=== PATIENT | female | born 1950 | race Caucasian/White ===

== ENCOUNTER → 2021-02-22 08:03 | Outpatient (CLI) | payer MEDICARE, OTHER, SELFPAY ==
--- NOTE | 2021-02-22 10:06 | PFTCOMP ---
COMPLETE PULMONARY FUNCTION TEST INTERPRETATION Brief HPI: Patient is a 71 year old female, currently under the care of Dr. Larose, who presents to [facility] for complete pulmonary function tests secondary to diagnosis of COPD. Respiratory therapist reports good effort and reproducible results. Interpretation: Forced expiration spirometry shows a mild large airways obstructive ventilatory defect with an FEV1 of 103% predicted. There is no significant bronchodilator response by strict ATS criteria. Spirograms are of good quality and plateau slowly, indicating slowly emptying areas of the lungs. The respiratory flow volume loop shows decreased expiratory flow rates at all lung volumes consistent with airway obstruction. Lung volumes by body plethysmography show an elevated total lung capacity at 4.91 L, 129% predicted. FRC and RV are elevated out of proportion. Lung volume measurements are consistent with hyperinflation and air-trapping. Diffusion capacity by carbon monoxide is decreased at 41% predicted. The airway resistance is normal. Compared to previous pulmonary function tests from 07/14/2016, there is been significant worsening in air trapping with hyperinflation. Impression: Irreversible mild large airways obstructive ventilatory defect, resulting in air trapping with hyperinflation, and a disproportionate reduction in diffusion capacity. There have been changes compared to previous study.
== END ==
PROVIDERS: PCP Student in an Organized Health Care Education/Training Program; Referring Provider Internal Medicine Critical Care Medicine; Visit Provider Internal Medicine Critical Care Medicine
DX: J44.9 Chronic obstructive pulmonary disease, unspecified (principal)
CPT/HCPCS: 94060; 94726; 94729

== ENCOUNTER → 2021-02-23 12:46 | Outpatient (CLI) | payer MEDICARE, OTHER, SELFPAY ==
[2021-02-23 13:12] VITALS: PULSE 100; PULSE 101; PULSE 103; PULSE 81; PULSE 85; PULSE 97; O2SAT 90; O2SAT 91; O2SAT 92; O2SAT 93; O2SAT 95; O2SAT 96
--- NOTE | 2021-02-23 13:14 | CPS ---
Patient took one brief break during testing about half way through the 3rd minute for less than 10 seconds. Patient stated that the reason for the break was due to hip pain. Patient was audibly wheezy at this time but was able to speak in full sentences. Patient complained mostly of hip pain at the end of testing and moderate shortness of breath.
--- NOTE | 2021-02-23 14:49 | PCM.PSN.6M ---
PSN 6 Minute Walk Test 6 Minute Walk Test 6 Minute Walk Test: 6 Minute Walk Test PSN:6-Minute Walk Test Start: 02/23/21 13:12 Freq: Status: Active Protocol: [id number] Document 02/23/21 13:12 TYSON (Rec: 02/23/21 13:17 [email or web address] [id number]) 6 Minute Walk Test Date Performed 02/23/21 Time Performed 13:00 Height 4 ft 9 in Weight: 89.358 kg Weight in Pounds 197.[address]: Vernon Larose Assistive device used: None Pre-test Oxygen Delivery Method Room Air Pulse Ox (%) 95 Pulse Rate (60-100 beats/min) 81 Dyspnea Werner Scale (0-10) 0 Exertion Werner Scale (6-20) 6 1st minute Oxygen Delivery Method Room Air Pulse Ox (%) 92 Pulse Rate (60-100 beats/min) 97 2nd minute Oxygen Delivery Method Room Air Pulse Ox (%) 91 Pulse Rate (60-100 beats/min) 100 3rd minute Oxygen Delivery Method Room Air Pulse Ox (%) 90 Pulse Rate (60-100 beats/min) 100 Number of Rests Taken 1 4th minute Oxygen Delivery Method Room Air Pulse Ox (%) 93 Pulse Rate (60-100 beats/min) 100 5th minute Oxygen Delivery Method Room Air Pulse Ox (%) 90 Pulse Rate (60-100 beats/min) 103 H 6th minute Oxygen Delivery Method Room Air Pulse Ox (%) 90 Pulse Rate (60-100 beats/min) 101 H Dyspnea Werner Scale (0-10) 3 Exertion Werner Scale (6-20) 14 Post-test Oxygen Delivery Method Room Air Pulse Ox (%) 96 Pulse Rate (60-100 beats/min) 85 Full Laps Walked 12 Partial Lap, Number of Tiles Walked 20 Total Distance Walked (ft) 728 02/23/21 13:14 Cardiopulmonary Services by Beryl Kimball Patient took one brief break during testing about half way through the 3rd minute for less than 10 seconds. Patient stated that the reason for the break was due to hip pain. Patient was audibly wheezy at this time but was able to speak in full sentences. Patient complained mostly of hip pain at the end of testing and moderate shortness of breath. Initialized on 02/23/21 13:14 - END OF NOTE Interpretation Interpretation: The patient was able to ambulate 728 feet over the course of 6 minutes on room air with no assistive devices and one break secondary to hip pain. Patient did experience significant desaturation from a baseline of 95% to as low as 90% with some reflexive tachycardia as high as 103 bpm. These findings are consistent with a respiratory limitation exercise tolerance. Recommendations Recommendations: The patient does not qualify for supplemental oxygen at this time, but should be followed closely given level of desaturation.
== END ==
PROVIDERS: PCP Student in an Organized Health Care Education/Training Program; Referring Provider Internal Medicine Critical Care Medicine; Visit Provider Internal Medicine Critical Care Medicine
DX: J96.11 Chronic respiratory failure with hypoxia (principal)
CPT/HCPCS: 94618

== ENCOUNTER → 2021-02-24 06:42 | Outpatient (CLI) | payer MEDICARE, SELFPAY ==
--- NOTE | 2021-02-24 07:11 | CT_ITS ---
STUDY: LOW DOSE CT LUNG CANCER SCREENING REASON FOR EXAM: Female, 71 years old. h/o Tobacco Dependency, 40 year smoker RADIATION DOSAGE (If Supplied By Facility): CTDIvol = ( 3.02 ) mGy, DLP = ( 101.56 ) mGycm TECHNIQUE: No contrast was administered. Low dose technique was utilized (average mAS-38 and kVp 120). 1.25 mm axial source images with a slice interval of 1.25-mm were reconstructed in lung windows. 2.5 mm axial source images with a slice interval of 2.5-mm were reconstructed in lung windows. 5.0 mm axial source images with a slice interval of 5.0-mm were reconstructed in soft tissue windows. Nodule measured using lung windows on PACS and/or independent workstation with automated measurement of minimum and maximum diameter. Nodule measurement reported as average diameter rounded to the nearest whole number. Growth is defined as an increase ins size of greater than 1.5 mm. COMPARISON: None. Findings: The lungs are fully evaluable. Evaluation of other structures is extremely limited due to combination of technique and patient''s severely large body habitus. Lungs are severely emphysematous without focal high risk findings. Airways are patent. Coronary arteries are severely diseased. There is possible aortic valve stenosis. CT/Low Dose CT Lung Screening IMPRESSION: 1. Lung RADS category 1. 2. Severe emphysema. 3. Severe coronary artery disease. 4. Possible aortic valve stenosis, recommend echocardiography. IMPORTANT NOTES FOR USE: ACR Lung-RADS Version 1.1 Assessment Categories Release Date: 2018 Category: Coded 0-4 bases on nodule(s) with highest degree of suspicion. Negative screen is defined as categories 1 and 2; a positive screen is defined as categories 3 and 4. Category 3 and 4A nodules that are unchanged on interval CT should be coded as category 2, and individuals returned to screening in 12 months. Category 4X: Category 3 or 4 nodules with additional imaging findings that increase the suspicion of lung cancer, such as spiculation, GGN that doubles in size in 1 year, enlarged lymph notes, etc. Category Modifiers: S (significant finding unrelated to lung cancer) Electronically Signed: Brian Veronica MD at 15:26 EST Tel , Service support ,
== END ==
PROVIDERS: PCP Student in an Organized Health Care Education/Training Program; Referring Provider Internal Medicine Critical Care Medicine; Visit Provider Internal Medicine Critical Care Medicine
DX: F17.211 Nicotine dependence, cigarettes, in remission (principal)
CPT/HCPCS: 71271

== ENCOUNTER → 2021-03-10 07:52 | Outpatient (CLI) | payer MEDICARE, OTHER, SELFPAY ==
--- NOTE | 2021-03-10 07:56 | ECHOD_ITS ---
Reason For Study: AV disease seen on CT Procedure This was a 2D Doppler, Color Flow transthoracic echocardiogram. The study was technically difficult. Exam performed in department. Left Ventricle Normal LV size. Left ventricular systolic function is normal. The estimated ejection fraction is 65 %. Diastolic function is indeterminate. No regional wall motion abnormalities noted. Right Ventricle Normal RV size. Normal systolic function. Atria The left atrium is mildly enlarged. Normal right atrium. No doppler evidence for ASD. Mitral Valve There is mild mitral annular calcification. Extension of the mitral annular calcification onto the base of the posterior mitral valve leaflet. Mild (1+) mitral valve insufficiency. Tricuspid Valve Normal tricuspid valve. Trivial tricuspid valve insufficiency. Right ventricular systolic pressure estimated to be 27 mmHg. Aortic Valve Trisinus/trileaflet aortic valve. Mild focal aortic valve calcification. Aortic sclerosis, no stenosis. Trivial aortic valve insufficiency. Pulmonic Valve The pulmonic valve is not well visualized. Trivial pulmonic valve insufficiency. Great Vessels Normal sized aortic root. Pericardium/Pleural No pericardial effusion. MMode/2D Measurements & Calculations LVIDd: 4.2 cm IVSd: 1.1 cm LVOT diam: 2.0 cm LVIDs: 2.2 cm LVPWd: 1.1 cm LVOT area: 3.2 cm2 RVDd: 2.9 cm FS: 48.5 % Ao root diam: 2.5 cm LAV(MOD-bp): 52.2 ml LVAd ap4: 19.6 cm2 LAV(MOD-bp) Indexed: 28.8 ml/m2 LVLd ap4: 6.3 cm LAV(MOD-sp2): 50.3 ml EDV(MOD-sp4): 51.3 ml LAV(MOD-sp4): 49.7 ml EDV(sp4-el): 51.5 ml LVAs ap4: 10.4 cm2 LVLs ap4: 5.3 cm ESV(MOD-sp4): 18.7 ml ESV(sp4-el): 17.1 ml EF(MOD-sp4): 63.4 % EF(sp4-el): 66.9 % LVAd ap2: 17.5 cm2 SV(MOD-sp4): 32.5 ml SV(MOD-sp2): 25.5 ml LVLd ap2: 6.3 cm EDV(MOD-sp2): 40.2 ml EDV(sp2-el): 40.9 ml LVAs ap2: 9.8 cm2 LVLs ap2: 5.8 cm ESV(MOD-sp2): 14.7 ml ESV(sp2-el): 14.0 ml EF(MOD-sp2): 63.5 % SV(sp4-el): 34.4 ml LA dimension(2D): 4.2 cm LA A4 area: 18.9 cm2 RA A4 area: 12.2 cm2 Doppler Measurements & Calculations MV E max delgado: 101.5 cm/sec Lat Peak E' Delgado: 8.7 cm/sec Med Peak E' Delgado: 6.0 cm/sec MV A max delgado: 109.6 cm/sec E/E' lat: 11.7 E/E' med: 16.9 MV E/A: 0.93 Ao V2 max: 172.9 cm/sec LV V1 max: 105.7 cm/sec SV(LVOT): 87.1 ml Ao max P.0 mmHg LV V1 max P.5 mmHg Ao V2 mean: 118.6 cm/sec LV V1 mean P.3 mmHg Ao mean P.2 mmHg LV V1 mean: 72.6 cm/sec Ao V2 VTI: 41.6 cm LV V1 VTI: 27.0 cm MILLY(I,D): 2.1 cm2 MILLY(V,D): 2.0 cm2 PA V2 max: 100.9 cm/sec TR max delgado: 242.5 cm/sec TR max P.5 mmHg ECHO/Echo Complete Interpretation Summary The study was technically difficult. Left ventricular systolic function is normal. The estimated ejection fraction is 65 %. The left atrium is mildly enlarged. There is mild mitral annular calcification. Extension of the mitral annular calcification onto the base of the posterior mi tral valve leaflet. Mild (1+) mitral valve insufficiency. Trivial tricuspid valve insufficiency. Aortic sclerosis, no stenosis. Trivial aortic valve insufficiency. Trivial pulmonic valve insufficiency. Right ventricular systolic pressure estimated to be 27 mmHg. Diastolic function is indeterminate. Ordering Physician: Hermelindo Saenz Referring Physician: Hermelindo Saenz Performed By: Luann Jones RDCS
== END ==
PROVIDERS: PCP Student in an Organized Health Care Education/Training Program; Referring Provider Student in an Organized Health Care Education/Training Program; Visit Provider Student in an Organized Health Care Education/Training Program
DX: I25.10 Atherosclerotic heart disease of native coronary artery without angina pectoris (principal)
CPT/HCPCS: 93306

== ENCOUNTER → 2021-03-15 20:00 | Outpatient (CLI) | payer OTHER, SELFPAY | PROVIDERS: PCP Preventive Medicine Occupational Medicine; Referring Provider Internal Medicine Critical Care Medicine; Visit Provider Internal Medicine Critical Care Medicine | DX: G47.33 Obstructive sleep apnea (adult) (pediatric) (principal) | CPT/HCPCS: 95810 ==

== ENCOUNTER 2021-04-30 21:24 | Outpatient (CLI) | payer MEDICARE, OTHER, SELFPAY | END 2021-04-30 23:59 | disposition short-term general hospital (02) | PROVIDERS: PCP Student in an Organized Health Care Education/Training Program; Referring Provider Nurse Practitioner Acute Care; Visit Provider Nurse Practitioner Acute Care | DX: Z00.00 Encounter for general adult medical examination without abnormal findings (principal) ==

== ENCOUNTER 2021-05-11 09:00 | Outpatient (CLI) | payer MEDICARE, OTHER, SELFPAY | END 2021-05-11 23:59 | disposition home or self-care (01) | LOC: SL 10:44 | PROVIDERS: PCP Student in an Organized Health Care Education/Training Program; Referring Provider Nurse Practitioner Acute Care; Visit Provider Nurse Practitioner Acute Care | DX: Z46.89 Encounter for fitting and adjustment of other specified devices (principal) | CPT/HCPCS: 98960; G0463 ==

== ENCOUNTER 2021-06-18 19:59 | Outpatient (CLI) | payer MEDICARE, OTHER, SELFPAY ==
[2021-06-18] MEDS: Zolpidem Tartrate 5 MG Tablet PO (21:00)
== END 2021-06-18 23:59 | disposition home or self-care (01) ==
PROVIDERS: PCP Student in an Organized Health Care Education/Training Program; Visit Provider Nurse Practitioner Acute Care
DX: G47.33 Obstructive sleep apnea (adult) (pediatric) (principal)
CPT/HCPCS: 95811